=== PATIENT | male | born 2005 | race Caucasian/White ===

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

== ENCOUNTER 2025-01-04 18:43 | Inpatient (IN) | payer OTHER ==
[2025-01-04] MEDS ORDERED: MAG HYDROX/AL HYDROX/SIMETH 30 ML UNIT-DOSE CUP ONE (20:10)
[2025-01-04] MEDS ORDERED: ACETAMINOPHEN INJECTION 100 ML ONE (20:10)
[2025-01-04] MEDS ORDERED: FAMOTIDINE 20 MG/50 ML IVPB 20 MG/50 ML MG IVPB ONE (20:10)
[2025-01-04] MEDS ORDERED: ONDANSETRON 4 MG/2 ML VIAL ONE (20:10)
[2025-01-04] MEDS: MAG HYDROX/AL HYDROX/SIMETH -MYLANTA- ORAL SUSPENSION PO ONE (20:27)
[2025-01-04] MEDS: FAMOTIDINE 20 MG/50 ML IVPB 20 MG/50 ML MG IVPB ONE (20:27)
[2025-01-04] MEDS: ONDANSETRON 4 MG/2 ML VIAL IVPUSH ONE (20:27)
[2025-01-04] MEDS: LACTATED RINGERS SOLUTION 1000 ML INFUS.BAG IV ONE ×2 (20:27→23:03)
[2025-01-04 20:50] LABS: ABSOLUTE IMMATURE GRANULOCYTES 0.02 x10^3/uL (0.0-0.031); BASOPHILS # 0.03 x10^3/uL (0.01-0.08); EOSINOPHIL % 0.8 % (0.8-7.0); EOSINOPHILS # 0.06 x10^3/uL (0.04-0.54); HEMATOCRIT 45.9 % (40.1-51.0); HEMOGLOBIN 15.4 g/dL (13.7-17.5); MCHC 33.6 g/dl (32.3-36.5); MEAN CELL VOLUME 89.5 fl (79.0-92.2); MEAN PLT VOLUME 10.2 fl (9.4-12.4); MONOCYTE % 7.5 % (5.3-12.2); PLATELET COUNT 282 x10^3/uL (163-337); RDW 11.7 % (12.0-15.6)
[2025-01-04] MEDS: ACETAMINOPHEN 1000 MG/100 ML BAG IVPB ONE (20:52)
[2025-01-04 21:07] LABS: POTASSIUM 4.3 mmol/L (3.5-5.1)
[2025-01-04 21:09] LABS: ALBUMIN 4.4 g/dl (3.4-5.0); BLOOD UREA NITROGEN 14.6 mg/dL (7-18); CALCIUM 10.2 mg/dL (8.5-10.1); MAGNESIUM 2.4 mg/dL (1.8-2.4)
[2025-01-04 21:12] LABS: CREATININE 0.8 mg/dL (0.55-1.3)
[2025-01-04 21:14] LABS: BILIRUBIN,TOTAL 1.9 mg/dL (0.2-1); TOT PROT 8.4 g/dl (6.4-8.2)
[2025-01-04 22:00] LABS: HCV DIAGNOSTIC IN-HOUSE W/RFLX NON-REACTIVE (NONREACTIVE); HIV INTERPRETATION NEGATIVE (NEGATIVE)
[2025-01-04 22:59] LABS: PH,URINE 6.5 (5.0-8.0); URINE APPEARANCE CLEAR; URINE BILIRUBIN NEGATIVE (NEGATIVE); URINE COLOR YELLOW; URINE GLUCOSE (UA) NEGATIVE (NEGATIVE); URINE KETONE 2+ (NEGATIVE); URINE LEUK ESTERASE NEGATIVE (NEGATIVE); URINE NITRITE NEGATIVE (NEGATIVE); URINE PROTEIN TRACE (NEGATIVE)
[2025-01-04] MEDS ORDERED: ACETAMINOPHEN 1000 MG/100 ML BAG IVPB PRN (23:53)
[2025-01-05 00:15] LABS: BILIRUBIN,DIRECT 0.6 mg/dL (0.0-0.2)
[2025-01-05] MEDS ORDERED: KETOROLAC TROMETHAMINE 15 MG/ML VIAL ONE (00:22)
[2025-01-05] MEDS: LACTATED RINGERS SOLUTION 1,000 ML IV SCH (00:34)
[2025-01-05 02:06] VITALS: BMI 25.3
[2025-01-05 03:13] LABS: METHADONE, UR NEGATIVE (NEGATIVE); OPIATES, URI NEGATIVE (NEGATIVE); URINE AMPHETAMINES NEGATIVE (NEGATIVE); URINE BARBITURATES NEGATIVE (NEGATIVE); URINE BENZODIAZEPINES NEGATIVE (NEGATIVE)
[2025-01-05 03:14] LABS: PHENCYCLIDINE,URINE NEGATIVE (NEGATIVE)
[2025-01-05 04:12] LABS: COCAINE, UR NEGATIVE (NEGATIVE)
[2025-01-05] MEDS ORDERED: ONDANSETRON 4 MG/2 ML VIAL IVPUSH PRN (07:46)
[2025-01-05 08:31] LABS: HEMATOCRIT 38.7 % (40.1-51.0); HEMOGLOBIN 12.8 g/dL (13.7-17.5); MCHC 33.1 g/dl (32.3-36.5); MEAN CELL VOLUME 90.6 fl (79.0-92.2); MEAN PLT VOLUME 10.4 fl (9.4-12.4); PLATELET COUNT 225 x10^3/uL (163-337); RDW 11.8 % (12.0-15.6)
[2025-01-05 08:35] LABS: INR 1.11 (0.83-1.09); PROTHROMBIN TIME (PATIENT) 12.2 SEC (9.7-13.0)
[2025-01-05 08:39] LABS: POTASSIUM 3.7 mmol/L (3.5-5.1)
[2025-01-05 08:41] LABS: CALCIUM 8.9 mg/dL (8.5-10.1)
[2025-01-05 08:42] LABS: BLOOD UREA NITROGEN 9.7 mg/dL (7-18)
[2025-01-05 08:44] LABS: BILIRUBIN,DIRECT 0.6 mg/dL (0.0-0.2)
[2025-01-05 08:45] LABS: CREATININE 0.7 mg/dL (0.55-1.3)
[2025-01-05 08:46] LABS: BILIRUBIN,TOTAL 1.6 mg/dL (0.2-1)
[2025-01-05 09:26] LABS: ALBUMIN 3.3 g/dl (3.4-5.0); TOT PROT 6.1 g/dl (6.4-8.2)
[2025-01-05 16:54] LABS: HEPATITIS B SURF AG NON-MATERN NON-REACTIVE (NONREACTIVE)
[2025-01-05] MEDS ORDERED: LACTATED RINGERS SOLUTION 1000 ML INFUS.BAG IV ONE (22:25)
[2025-01-06 08:58] LABS: ABSOLUTE IMMATURE GRANULOCYTES 0.03 x10^3/uL (0.0-0.031); BASOPHILS # 0.03 x10^3/uL (0.01-0.08); HEMATOCRIT 41.9 % (40.1-51.0); MCHC 33.4 g/dl (32.3-36.5); MEAN CELL VOLUME 90.9 fl (79.0-92.2); MEAN PLT VOLUME 10.6 fl (9.4-12.4); MONOCYTE # 0.34 x10^3/uL (0.30-0.82); MONOCYTE % 6.7 % (5.3-12.2); PLATELET COUNT 237 x10^3/uL (163-337); RDW 11.6 % (12.0-15.6)
[2025-01-06 09:19] LABS: ALBUMIN 3.5 g/dl (3.4-5.0); BLOOD UREA NITROGEN 7.5 mg/dL (7-18); CALCIUM 9.2 mg/dL (8.5-10.1)
[2025-01-06 09:22] LABS: CREATININE 0.6 mg/dL (0.55-1.3)
[2025-01-06 09:24] LABS: BILIRUBIN,TOTAL 1.1 mg/dL (0.2-1); TOT PROT 6.9 g/dl (6.4-8.2)
[2025-01-06] MEDS: PIPERACILLIN/TAZOB 3.375 GM 50 ML IVPB SCH (09:31)
[2025-01-06] MEDS ORDERED: PIPERACILLIN/TAZOB 3.375 GM 3.375 GM in DEXTROSE 5%-WATER - 50 ML IVPB SCH (10:00)
[2025-01-07] MEDS: PIPERACILLIN/TAZOB 3.375 GM 3.375 GM in DEXTROSE 5%-WATER - 50 ML IVPB SCH (03:55)
[2025-01-07 09:39] LABS: ABSOLUTE IMMATURE GRANULOCYTES 0.01 x10^3/uL (0.0-0.031); BASOPHILS # 0.04 x10^3/uL (0.01-0.08); EOSINOPHIL % 4.4 % (0.8-7.0); EOSINOPHILS # 0.21 x10^3/uL (0.04-0.54); HEMATOCRIT 42.2 % (40.1-51.0); MCHC 33.2 g/dl (32.3-36.5); MEAN CELL VOLUME 90.2 fl (79.0-92.2); MEAN PLT VOLUME 10.7 fl (9.4-12.4); MONOCYTE # 0.36 x10^3/uL (0.30-0.82); MONOCYTE % 7.6 % (5.3-12.2); PLATELET COUNT 264 x10^3/uL (163-337); RDW 11.9 % (12.0-15.6)
[2025-01-07 10:11] LABS: POTASSIUM 3.6 mmol/L (3.5-5.1)
[2025-01-07 10:19] LABS: BLOOD UREA NITROGEN 6.1 mg/dL (7-18)
[2025-01-07 10:23] LABS: ALBUMIN 3.8 g/dl (3.4-5.0); CALCIUM 9.8 mg/dL (8.5-10.1)
[2025-01-07 10:27] LABS: CREATININE 0.7 mg/dL (0.55-1.3)
[2025-01-07 10:28] LABS: BILIRUBIN,TOTAL 1.1 mg/dL (0.2-1); TOT PROT 7.3 g/dl (6.4-8.2)
[2025-01-08 07:41] LABS: HEMATOCRIT 47.4 % (40.1-51.0); HEMOGLOBIN 15.6 g/dL (13.7-17.5); MCHC 32.9 g/dl (32.3-36.5); MEAN CELL VOLUME 90.8 fl (79.0-92.2); MEAN PLT VOLUME 10.3 fl (9.4-12.4); PLATELET COUNT 286 x10^3/uL (163-337); RDW 11.8 % (12.0-15.6)
[2025-01-08 08:01] LABS: POTASSIUM 3.4 mmol/L (3.5-5.1)
[2025-01-08 08:09] LABS: CALCIUM 10.1 mg/dL (8.5-10.1)
[2025-01-08 08:10] LABS: ALBUMIN 4.3 g/dl (3.4-5.0); BLOOD UREA NITROGEN 6.2 mg/dL (7-18); MAGNESIUM 2.4 mg/dL (1.8-2.4)
[2025-01-08 08:13] LABS: BILIRUBIN,TOTAL 0.8 mg/dL (0.2-1); CREATININE 0.9 mg/dL (0.55-1.3); PHOSPHOROUS 5.1 mg/dL (2.5-4.9); TOT PROT 8.3 g/dl (6.4-8.2)
[2025-01-08] MEDS ORDERED: LACTATED RINGERS SOLUTION 1,000 ML/1,000 ML INFUS.BAG IV SCH (10:45)
[2025-01-08] MEDS ORDERED: MIDAZOLAM HCL 2 MG/2 ML SINGLE DOSE VIAL ONE (12:27)
[2025-01-08] MEDS ORDERED: ONDANSETRON 4 MG/2 ML VIAL IVPUSH PRN (12:39)
[2025-01-08] MEDS ORDERED: LACTATED RINGERS SOLUTION 1,000 ML IV SCH (12:45)
[2025-01-08] MEDS: PIPERACILLIN/TAZOB 3.375 GM 3.375 GM in DEXTROSE 5%-WATER - 50 ML IVPB SCH (13:02)
[2025-01-08] MEDS: INDOMETHACIN 50 MG RECTAL SUPPOSITORY PR SCH (13:15)
[2025-01-08] MEDS: LACTATED RINGERS SOLUTION 1,000 ML IV SCH (14:57)
[2025-01-08] MEDS ORDERED: PIPERACILLIN/TAZOBACTAM 3.375 GM VIAL IVPB ONE (16:56)
[2025-01-09] MEDS: PIPERACILLIN/TAZOB 3.375 GM 3.375 GM in DEXTROSE 5%-WATER - 50 ML IVPB SCH (01:13)
[2025-01-09 08:50] LABS: HEMATOCRIT 38.9 % (40.1-51.0); HEMOGLOBIN 13.3 g/dL (13.7-17.5); MCHC 34.2 g/dl (32.3-36.5); PLATELET COUNT 250 x10^3/uL (163-337); RDW 11.4 % (12.0-15.6)
[2025-01-09 09:11] LABS: POTASSIUM 3.8 mmol/L (3.5-5.1)
[2025-01-09 09:38] LABS: ALBUMIN 3.5 g/dl (3.4-5.0); BLOOD UREA NITROGEN 5.2 mg/dL (7-18); CALCIUM 9.7 mg/dL (8.5-10.1)
[2025-01-09 09:42] LABS: CREATININE 0.7 mg/dL (0.55-1.3)
[2025-01-09 09:43] LABS: BILIRUBIN,TOTAL 0.6 mg/dL (0.2-1); TOT PROT 6.7 g/dl (6.4-8.2)
[2025-01-10] MEDS ORDERED: BUPIVACAINE HCL/PF 0.25% (2.5MG/ML) 10 ML VIAL ONE (10:35)
[2025-01-10] MEDS ORDERED: HEPARIN NA (PORCINE) 5,000 UNITS/ML 1ML VIAL ONE (10:35)
[2025-01-10] MEDS ORDERED: cefOXitin SODIUM 2 GM VIAL (RESTRICTED TO ID) IVPB ONE (10:35)
[2025-01-10] MEDS ORDERED: DEXAMETHASONE SOD PHOSPHATE 4 MG/1 ML VIAL ONE (11:11)
[2025-01-10] MEDS ORDERED: ONDANSETRON 4 MG/2 ML VIAL ONE (11:11)
[2025-01-10] MEDS ORDERED: ROCURONIUM BROMIDE 50 MG/5 ML SYRINGE ONE ×2 (11:12→12:23)
[2025-01-10] MEDS ORDERED: MIDAZOLAM HCL 2 MG/2 ML SINGLE DOSE VIAL ONE (11:12)
[2025-01-10] MEDS ORDERED: PROPOFOL 20 ML ONE ×2 (11:12→11:51)
[2025-01-10] MEDS: cefOXitin SODIUM 2 GM VIAL (RESTRICTED TO ID) IVPB ONE ×2 (11:30)
[2025-01-10] MEDS ORDERED: SUGAMMADEX SODIUM 200 MG/2 ML VIAL ONE (11:48)
[2025-01-10] MEDS ORDERED: KETOROLAC TROMETHAMINE 30 MG/1 ML VIAL ONE (11:48)
[2025-01-10] MEDS: BUPIVACAINE HCL/PF 0.25% (2.5MG/ML) 10 ML VIAL IJ ONE ×2 (12:53)
[2025-01-10] MEDS ORDERED: ONDANSETRON 4 MG/2 ML VIAL IVPUSH PRN ×3 (13:09→13:53)
[2025-01-10] MEDS ORDERED: PROMETHAZINE HCL 25 MG/1 ML VIAL IVPB PRN ×2 (13:09→13:53)
[2025-01-10] MEDS: LACTATED RINGERS SOLUTION 1,000 ML IV SCH ×2 (13:10→14:31)
[2025-01-10] MEDS ORDERED: ACETAMINOPHEN INJECTION 100 ML ONE (13:14)
[2025-01-10] MEDS: ACETAMINOPHEN 1000 MG/100 ML BAG IVPB ONE (13:17)
[2025-01-10] MEDS ORDERED: ACETAMINOPHEN 1000 MG/100 ML BAG IVPB PRN (13:53)
[2025-01-10] MEDS ORDERED: HYDROmorphone HCl 2 MG/ML VIAL IVPUSH PRN (14:38)
[2025-01-10] MEDS ORDERED: HYDROmorphone HCL CARPU-JECT 2 MG/1 ML DISP.SYRIN IVPUSH PRN (14:54)
[2025-01-10] MEDS: DOCUSATE SODIUM 100 MG CAPSULE (FP) PO SCH (15:38)
[2025-01-10] MEDS: oxyCODONE HCL 5 MG TABLET PO PRN ×2 (16:45→22:13)
[2025-01-10] MEDS: ACETAMINOPHEN 1000 MG/100 ML BAG IVPB SCH (19:00)
[2025-01-10 19:32] VITALS: RESP 18
[2025-01-11 08:28] LABS: ABSOLUTE IMMATURE GRANULOCYTES 0.04 x10^3/uL (0.0-0.031); BASOPHILS # 0.03 x10^3/uL (0.01-0.08); EOSINOPHIL % 0.1 % (0.8-7.0); EOSINOPHILS # 0.01 x10^3/uL (0.04-0.54); HEMOGLOBIN 12.7 g/dL (13.7-17.5); MCHC 33.4 g/dl (32.3-36.5); MEAN PLT VOLUME 10.5 fl (9.4-12.4); MONOCYTE # 0.66 x10^3/uL (0.30-0.82); MONOCYTE % 6.3 % (5.3-12.2); PLATELET COUNT 235 x10^3/uL (163-337); RDW 11.7 % (12.0-15.6)
[2025-01-11 08:53] LABS: POTASSIUM 3.7 mmol/L (3.5-5.1)
[2025-01-11 09:05] LABS: ALBUMIN 3.4 g/dl (3.4-5.0); BLOOD UREA NITROGEN 3.6 mg/dL (7-18); CALCIUM 9.6 mg/dL (8.5-10.1)
[2025-01-11 09:08] LABS: CREATININE 0.6 mg/dL (0.55-1.3)
[2025-01-11 09:10] LABS: BILIRUBIN,TOTAL 0.6 mg/dL (0.2-1); TOT PROT 6.3 g/dl (6.4-8.2)
[2025-01-11] MEDS ORDERED: ACETAMINOPHEN 500 MG TABLET (FP) PO PRN (13:30)
[2025-01-12 08:12] VITALS: BP 112/65; PULSE 72; TEMP 98.2
[2025-01-12 09:38] LABS: ABSOLUTE IMMATURE GRANULOCYTES 0.03 x10^3/uL (0.0-0.031); BASOPHILS # 0.04 x10^3/uL (0.01-0.08); EOSINOPHIL % 0.5 % (0.8-7.0); EOSINOPHILS # 0.04 x10^3/uL (0.04-0.54); HEMATOCRIT 44.8 % (40.1-51.0); MCHC 33.5 g/dl (32.3-36.5); MEAN CELL VOLUME 89.4 fl (79.0-92.2); MEAN PLT VOLUME 10.4 fl (9.4-12.4); MONOCYTE # 0.45 x10^3/uL (0.30-0.82); MONOCYTE % 5.5 % (5.3-12.2); PLATELET COUNT 317 x10^3/uL (163-337); RDW 11.3 % (12.0-15.6)
[2025-01-12 10:19] LABS: POTASSIUM 3.6 mmol/L (3.5-5.1)
[2025-01-12 10:22] LABS: BLOOD UREA NITROGEN 6.5 mg/dL (7-18)
[2025-01-12 10:25] LABS: BILIRUBIN,TOTAL 0.8 mg/dL (0.2-1); CREATININE 0.7 mg/dL (0.55-1.3)
[2025-01-12 10:44] LABS: TOT PROT 7.8 g/dl (6.4-8.2)
== END 2025-01-12 17:16 | disposition home or self-care (01) | DRG 263 ==
LOC: JER 18:43 → JERBED 22:50 → J5S 01-05 01:41
PROVIDERS: ADMIT Internal Medicine; ATTEND Family Medicine
PROC: 0F798ZZ Dilation of Common Bile Duct, Via Natural or Artificial Opening Endoscopic (ICD-10-PCS; 2025-01-08)
PROC: BF10YZZ Fluoroscopy of Bile Ducts using Other Contrast (ICD-10-PCS; 2025-01-08)
PROC: BD47ZZZ Ultrasonography of Gastrointestinal Tract (ICD-10-PCS; 2025-01-08)
PROC: 0FC98ZZ Extirpation of Matter from Common Bile Duct, Via Natural or Artificial Opening Endoscopic (ICD-10-PCS; 2025-01-08 15:30)
PROC: 0FT44ZZ Resection of Gallbladder, Percutaneous Endoscopic Approach (ICD-10-PCS; principal; 2025-01-10 12:00)
DX: K85.10 Biliary acute pancreatitis without necrosis or infection (principal); K80.50 Calculus of bile duct without cholangitis or cholecystitis without obstruction; F12.90 Cannabis use, unspecified, uncomplicated; R74.01 Elevation of levels of liver transaminase levels
CPT/HCPCS: 36415; 71045-TC-FY; 74177-TC; 74181-TC; 76000-TC-FY; 76705-TC; 80053; 80307; 81003; 82103; 82150; 82248; 83516; 83690; 83735; 84100; 84478; 85025; 85027; 85610; 86038; 86704; 86705; 86706; 86708; 86709; 86803; 86850; 86900; 86901; 87086; 87340; 87389; 87516; 87517; 87902; 88304-TC; 93005; 93010; 94010; 94760; 97116-GP; 97161-GP; 99285-25; J0131; J1644; Q9967